=== PATIENT | female | born 1970 | race Caucasian/White ===

== ENCOUNTER 2022-10-20 11:35 | Emergency (ER) | payer MEDICARE, OTHER ==
[2022-10-20 11:49] VITALS: BP 121/99; PULSE 74; RESP 16; TEMP 98.3; BMI 23.6
== END 2022-10-20 12:51 | disposition home or self-care (01) ==
LOC: JERFT 11:35
DX: H92.03 Otalgia, bilateral (principal); H53.8 Other visual disturbances; H02.845 Edema of left lower eyelid; H02.842 Edema of right lower eyelid; H10.33 Unspecified acute conjunctivitis, bilateral; H57.89 Other specified disorders of eye and adnexa
CPT/HCPCS: 99283-25